=== PATIENT | male | born 1935 | race Caucasian/White ===

== ENCOUNTER → 2017-04-19 | Outpatient (CLI) | payer MEDICARE ==
[~2017-04-19] MED LIST: ASA; BIOTIN; CALCIUM; CO-Q10; DIOVAN HCT; MAGNESIUM; RANITIDINE; TRILIPIX; VIT B-12
== END | disposition home or self-care (01) ==
LOC: LAB 09:48
PROVIDERS: Physical Medicine & Rehabilitation Sports Medicine
DX: G62.9 Polyneuropathy, unspecified (principal); M51.36 Other intervertebral disc degeneration, lumbar region; Z79.899 Other long term (current) drug therapy

== ENCOUNTER → 2017-05-02 | Outpatient (CLI) | payer MEDICARE | END | disposition home or self-care (01) | LOC: MRI 08:34 | DX: M48.061 Spinal stenosis, lumbar region without neurogenic claudication (principal); K45.8 Other specified abdominal hernia without obstruction or gangrene ==

== ENCOUNTER 2019-02-02 09:39 | Inpatient (IN) | payer MEDICARE, OTHER ==
[~2019-02-02] VITALS: Ht 180.3 cm; Wt 83.7 kg
[2019-02-02 09:40] VITALS: BP 114/67
[2019-02-02 10:43] LABS: BASO % 0.3 % (0.0-1.0); EOS % 0.2 % (1.0-4.0); HEMATOCRIT 49.8 % (42.0-52.0); HEMOGLOBIN 17.1 g/dl (14.0-18.0); LYMPH # 0.5 10*3/uL (1.3-4.4); MEAN CORPUSCULAR HGB 32.3 pg (27.0-31.0); MEAN CORPUSCULAR HGB CONC 34.3 g/dl (33.0-37.0); MEAN PLATELET VOLUME 10.3 fl (9.6-12.3); MONO # 0.5 10*3/uL (0.1-1.0); MONO % 7.3 % (3.0-9.0); NEUT # 5.6 10*3/uL (2.3-7.9); NEUT % 84.7 % (47.0-73.0); PLATELET COUNT AUTOMATED 118 10*3/uL (130-400); RED CELL DISTRI WIDTH 13.4 % (0-14.5); WHITE BLOOD COUNT 6.6 10*3/uL (4.8-10.8)
[2019-02-02 10:55] LABS: INTERNATIONAL NORM RATIO 1.1 (2.0-3.5)
[2019-02-02 10:57] LABS: ALBUMIN 3.1 gm/dl (3.1-4.5); ALKALINE PHOSPHATASE 46 U/L (45-117); BUN 17 mg/dl (7-24); CHLORIDE 102 mmol/L (98-107); CREATININE 0.85 mg/dL (0.70-1.30); LIPASE 78 U/L (73-393); POTASSIUM 3.6 mmol/L (3.5-5.1); SGOT/AST 40 IU/L (3-35); SGPT/ALT 42 U/L (12-78); SODIUM 135 mmol/L (136-145); TOTAL PROTEIN 6.5 gm/dL (6.4-8.2); TROPONIN I 0.017 ng/ml (<0.045)
[2019-02-02 11:14] VITALS: BP 120/55
[2019-02-02 11:16] LABS: BILIRUBIN NEGATIVE (NEGATIVE); BLOOD 1+ (NEGATIVE); CLARITY SL CLOUDY (CLEAR); COLOR YELLOW (YELLOW); GLUCOSE NEGATIVE (NEGATIVE); KETONE NEGATIVE (NEGATIVE); LEUKO ESTERASE NEGATIVE (NEGATIVE); NITRITE NEGATIVE (NEGATIVE); PH 6.5 (5.0-9.0); SPECIFIC GRAVITY <= 1.005 (1.005-1.030)
[2019-02-02 11:25] LABS: RBC 16-20 rbc/hpf (0-2)
[2019-02-02 13:06] VITALS: BP 108/62
--- NOTE | 2019-02-02 13:28 | NUR ---
Time: 1327 A 83 year old MALE admitted to 5E under services of AMY MUNSON DO. Pt. arrived via stretcher from ER. Chief complaint: CHILSS & FEVER W/ SHIVERS. RADHIKA KUNZ
[2019-02-02 13:30] VITALS: BP 110/52
[2019-02-02] MEDS ORDERED: ASPIRIN ADULT L81 M1 PO (13:39)
[2019-02-02] MEDS ORDERED: LOSARTAN-HCTZ1 EACH PO (13:39)
[2019-02-02] MEDS ORDERED: ZANTAC 300300 MG PO (13:40)
[2019-02-02] MEDS ORDERED: K-TAB ER8 MEQ PO (13:40)
[2019-02-02] MEDS ORDERED: CRESTOR20 M1 PO (13:41)
[2019-02-02] MEDS ORDERED: Lopressor25 MG PO (13:44)
[2019-02-02] MEDS ORDERED: MULTIVITAMINS1 EAC5 PO (13:45)
[2019-02-02] MEDS ORDERED: SUNMARK MAGNES250 MG PO (13:46)
[2019-02-02] MEDS ORDERED: VITAMIN D3400 UNI1 PO (13:47)
[2019-02-02] MEDS ORDERED: COQ-10100 MG PO (13:48)
[2019-02-02] MEDS ORDERED: VITAMIN B-12500 MC3 SL (13:49)
[2019-02-02] MEDS ORDERED: FISH OIL 500 M1 EACH PO (13:50)
--- NOTE | 2019-02-02 15:00 | NUR ---
DR GODINEZ CALLED AND AWARE THAT HOME MEDICATIONS ARE UP TO DATE.
[2019-02-02 16:00] VITALS: BP 115/65
[2019-02-02 20:00] VITALS: BP 169/76
--- NOTE | 2019-02-02 20:08 | NUR ---
TYMPANIC TEMPERATURE OBTAINED ON PT DUE S/S OF FEVER. READING IS 103.5 DEGREES AFTER 3 CHECKS. PT GIVEN 650 MG TYLENOL PO, COLD COMPRESSES ADDED TO PATIENT'S FOREHEAD, BACK OF NECK, AND ARMPITS. WILL MONITOR AND RECHECK. DR LEAL NOTIFIED OF FINDINGS.
--- NOTE | 2019-02-02 21:08 | NUR ---
PT TEMPERATURE HAS DECREASED FROM 103.5 TO 101.8 AT THIS TIME. PT STATES THAT HE IS FEELING MUCH BETTER AT THIS TIME. COLD COMPRESSES RE APPLIED. IV FLUIDS INFUSING. ENCOURAGING PO FLUIDS. WILL CONTINUE TO MONITOR PT. CALL LIGHT IN REACH.
--- NOTE | 2019-02-02 23:40 | NUR ---
PT GIVEN TYLENOL FOR C/O GENERAL BODY ACHES AND TEMPERATURE OF 99.3 TYMPANIC. WILL MONITOR FOR EFFECTIVENESS. NO OTHER COMPLAINTS VOICED AT THIS TIME. PT LYING IN BED. RESPIRATIONS EASY AND UNLABORED ON ROOM AIR. IV FLUIDS INFUSING INTO RIGHT ARM IV SITE PER ORDERS. CALL LIGHT IN REACH.
[2019-02-03] VITALS: BP 108/46
--- NOTE | 2019-02-03 00:40 | NUR ---
PT STATES THAT TYLENOL IS EFFECTIVE FOR BODY ACHES. FEVER CONTINUES TO DECREASE. PT STATES THAT HE NO LONGER HAS COLD CHILLS AND THAT HE FEELS DIAPHORETIC. IV FLUIDS INFUSING. ENCOURAGING PO FLUIDS. PT STATES THAT HE DOES NOT NEED ANYTHING ELSE AT THIS TIME. CALL LIGHT IN REACH, VERBALIZES USE OF CALL LIGHT.
[2019-02-03 06:31] LABS: BASO % 0.3 % (0.0-1.0); EOS # 0.1 10*3/uL (0.0-0.4); HEMATOCRIT 46.9 % (42.0-52.0); HEMOGLOBIN 15.9 g/dl (14.0-18.0); LYMPH # 0.7 10*3/uL (1.3-4.4); LYMPH % 20.8 % (27.0-41.0); MEAN CELL VOLUME 95.1 fl (80.0-94.0); MEAN CORPUSCULAR HGB 32.3 pg (27.0-31.0); MEAN CORPUSCULAR HGB CONC 33.9 g/dl (33.0-37.0); MONO # 0.4 10*3/uL (0.1-1.0); MONO % 12.4 % (3.0-9.0); NEUT # 2.3 10*3/uL (2.3-7.9); NEUT % 63.9 % (47.0-73.0); PLATELET COUNT AUTOMATED 107 10*3/uL (130-400); RED BLOOD COUNT 4.93 10*6/uL (4.50-5.90); RED CELL DISTRI WIDTH 13.5 % (0-14.5); WHITE BLOOD COUNT 3.6 10*3/uL (4.8-10.8)
[2019-02-03 06:59] LABS: ALBUMIN 2.8 gm/dl (3.1-4.5); BUN 12 mg/dl (7-24); CHLORIDE 108 mmol/L (98-107); CHOLESTEROL 85 mg/dL (<200); CREATININE 0.69 mg/dL (0.70-1.30); PHOSPHOROUS 2.4 mg/dL (2.5-4.9); POTASSIUM 3.5 mmol/L (3.5-5.1); SGOT/AST 38 IU/L (3-35); SGPT/ALT 38 U/L (12-78); SODIUM 140 mmol/L (136-145); TOTAL PROTEIN 5.8 gm/dL (6.4-8.2); TRIGLYCERIDES 90 mg/dl (<150); VLDL CHOLESTEROL 18 mg/dL (6-40)
[2019-02-03 07:06] LABS: ALKALINE PHOSPHATASE 42 U/L (45-117); HDL CHOLESTEROL 33 mg/dl (40-60); LDL CHOLESTEROL 34 mg/dL (9-159)
[2019-02-03 07:07] LABS: VITAMIN D, 25-HYDROXY 44.5 ng/mL (30-100)
[2019-02-03 07:10] LABS: INTERNATIONAL NORM RATIO 1.1 (2.0-3.5)
[2019-02-03 08:00] VITALS: BP 146/78
--- NOTE | 2019-02-03 09:28 | NUR ---
PT UP WALKING IN HALLWAYS
[2019-02-03 12:00] VITALS: BP 129/67
[2019-02-03 16:00] VITALS: BP 119/63
[2019-02-03 20:00] VITALS: BP 114/64
--- NOTE | 2019-02-03 20:00 | NUR ---
24 HR chart check completed.
--- NOTE | 2019-02-03 21:00 | NUR ---
AMBULATING HALLWAY. NO DISTRESS NOTED. NO VOICED COMPLAINTS
--- NOTE | 2019-02-03 21:00 | NUR ---
RESTING IN BED WITH NO DISTRESS NOTED. RESPIRATIONS EASY. LUNGS DIMINISHED, CLEAR. PULSE OX 95% RA. CALL LIGHT WITHIN REACH. NO VOICED COMPLAINTS
[2019-02-04] VITALS: BP 127/78
--- NOTE | 2019-02-04 | NUR ---
SLEEPING. NO DISTRESS NOTED. RESPIRATIONS EASY. VSS. CALL LIGHT WITHIN REACH
--- NOTE | 2019-02-04 06:00 | NUR ---
SLEPT THROUGHOUT NIGHT WITH NO DISTRESS NOTED. RESPIRATIONS EASY. REMAINS AFEBRILE. CALL LIGHT WITHIN REACH. NO VOICED COMPLAINTS THIS SHIFT
[2019-02-04 07:34] LABS: BUN 9 mg/dl (7-24); CHLORIDE 105 mmol/L (98-107); CREATININE 0.74 mg/dL (0.70-1.30); POTASSIUM 3.8 mmol/L (3.5-5.1); SODIUM 139 mmol/L (136-145)
[2019-02-04 08:00] VITALS: BP 114/80
[2019-02-04 11:48] LABS: BASO % 0.4 % (0.0-1.0); EOS # 0.2 10*3/uL (0.0-0.4); EOS % 4.4 % (1.0-4.0); HEMATOCRIT 46.1 % (42.0-52.0); HEMOGLOBIN 15.9 g/dl (14.0-18.0); LYMPH # 1.2 10*3/uL (1.3-4.4); MEAN CELL VOLUME 94.7 fl (80.0-94.0); MEAN CORPUSCULAR HGB 32.6 pg (27.0-31.0); MEAN CORPUSCULAR HGB CONC 34.5 g/dl (33.0-37.0); MEAN PLATELET VOLUME 11.9 fl (9.6-12.3); MONO # 0.8 10*3/uL (0.1-1.0); MONO % 14.7 % (3.0-9.0); NEUT # 3.2 10*3/uL (2.3-7.9); NEUT % 57.9 % (47.0-73.0); PLATELET COUNT AUTOMATED 115 10*3/uL (130-400); RED BLOOD COUNT 4.87 10*6/uL (4.50-5.90); RED CELL DISTRI WIDTH 13.5 % (0-14.5); WHITE BLOOD COUNT 5.5 10*3/uL (4.8-10.8)
[2019-02-04 12:00] VITALS: BP 113/73
[2019-02-04 16:00] VITALS: BP 107/59
--- NOTE | 2019-02-04 17:01 | NUR ---
Silk Soaker in to talk to patient. Patient states lives at HOME with . There are FEW steps in the home. Physician: LEISA Pharmacy: [facility]: NONE Patient's level of ADLs: INDEPENDENT Patient has working utilities: YES DME: NONE Follow-up physician's appointment after d/c: WILL BE MADE BY HOSPITALIST NURSE DIRECTOR ON DISCHARGE Does patient want to access PORTAL?: NO Discharge plan PT LIVES AT HOME WITH HIS AND IS INDEPENDENT IN HIS CARE. DENIES NEEDS ON DISCHARGE. WILL CONTINUE TO FOLLOW. WILL HAVE A RIDE HOME . GALINDO SHAVER
--- NOTE | 2019-02-04 19:26 | NUR ---
PATIENT RESTING IN BED WATCHING TV. HEP LOCK HANGING OUT OF ARM. CATHETER INTACT, NO BLEEDING NOTED. LUNGS CLEAR/DIMINISHED. DENIES NEEDS AT THIS TIME. BED IN LOWEST POSITION, CALL LIGHT IN REACH
[2019-02-04 20:00] VITALS: BP 106/67
[2019-02-05] VITALS: BP 127/76
[2019-02-05 08:00] VITALS: BP 100/68
[2019-02-05] MEDS ORDERED: ZITHROMAX500 MG PO (09:07)
--- NOTE | 2019-02-05 10:05 | NUR ---
PT DISCHARGED HOME AT THIS TIME WITH HIS WIFE4. HEPLOCK REMOVED. DISCHARGE INSTRUCTIONS REVIEWED.
--- NOTE | 2019-02-05 10:39 | NUR ---
PHYSICAL THERAPY Physical therapy order received. Patient discharged prior to offering PT evaluation. Thank you. Jessica De Santiago,PT,DPT
--- NOTE | 2019-02-05 10:39 | NUR ---
Occupational Therapy referral received 02/04/19 and patient was discharged before OT evaluation could be offered. Sheyla Morales OTR/l
== END 2019-02-05 09:35 | disposition home or self-care (01) | DRG 178 ==
LOC: ED 09:39 → EDHOLD 12:53 → 5E 12:53
PROVIDERS: Hospitalist; Physician Assistant; ADMIT Internal Medicine
DX: J15.6 Pneumonia due to other Gram-negative bacteria (principal); E87.1 Hypo-osmolality and hyponatremia; E87.2 Acidosis; R73.9 Hyperglycemia, unspecified; R74.0 Nonspecific elevation of levels of transaminase and lactic acid dehydrogenase [LDH]; R79.82 Elevated C-reactive protein (CRP); I25.10 Atherosclerotic heart disease of native coronary artery without angina pectoris; I10 Essential (primary) hypertension; K21.9 Gastro-esophageal reflux disease without esophagitis; K44.9 Diaphragmatic hernia without obstruction or gangrene; Z91.048 Other nonmedicinal substance allergy status; Z83.3 Family history of diabetes mellitus; Z82.49 Family history of ischemic heart disease and other diseases of the circulatory system

== ENCOUNTER → 2019-05-21 | Outpatient (CLI) | payer MEDICARE, OTHER ==
[~2019-05-21] MED LIST changes: +ASPIRIN ADULT L81 M1 PO; +COQ-10100 MG PO; +CRESTOR20 M1 PO; +FISH OIL 500 M1 EACH PO; +K-TAB ER8 MEQ PO; +LOSARTAN-HCTZ1 EACH PO; +Lopressor25 MG PO; +MULTIVITAMINS1 EAC5 PO; +SUNMARK MAGNES250 MG PO; +VITAMIN B-12500 MC3 SL; +VITAMIN D3400 UNI1 PO; +ZANTAC 300300 MG PO; +ZITHROMAX500 MG PO
[2019-05-21 09:45] LABS: BASO % 0.3 % (0.0-1.0); EOS # 0.1 10*3/uL (0.0-0.4); EOS % 1.7 % (1.0-4.0); HEMATOCRIT 55.4 % (42.0-52.0); LYMPH # 1.7 10*3/uL (1.3-4.4); LYMPH % 24.1 % (27.0-41.0); MEAN CELL VOLUME 98.6 fl (80.0-94.0); MEAN CORPUSCULAR HGB CONC 32.5 g/dl (33.0-37.0); MEAN PLATELET VOLUME 10.6 fl (9.6-12.3); MONO # 0.7 10*3/uL (0.1-1.0); MONO % 9.4 % (3.0-9.0); NEUT # 4.5 10*3/uL (2.3-7.9); NEUT % 64.1 % (47.0-73.0); PLATELET COUNT AUTOMATED 169 10*3/uL (130-400); RED BLOOD COUNT 5.62 10*6/uL (4.50-5.90); RED CELL DISTRI WIDTH 12.6 % (0-14.5); WHITE BLOOD COUNT 7.1 10*3/uL (4.8-10.8)
[2019-05-21 10:18] LABS: ALKALINE PHOSPHATASE 62 U/L (45-117); BUN 17 mg/dl (7-24); CHLORIDE 107 mmol/L (98-107); CHOLESTEROL 115 mg/dL (<200); CREATININE 0.89 mg/dL (0.70-1.30); HDL CHOLESTEROL 42 mg/dl (40-60); LDL CHOLESTEROL 39 mg/dL (9-159); SGOT/AST 21 IU/L (3-35); SGPT/ALT 32 U/L (12-78); SODIUM 142 mmol/L (136-145); T3 UPTAKE 40 % (31-39); THYROXINE (T4) TOTAL 6.4 ug/dl (4.5-12.1); TOTAL PROTEIN 7.4 gm/dL (6.4-8.2); TRIGLYCERIDES 170 mg/dl (<150); VLDL CHOLESTEROL 34 mg/dL (6-40)
== END ==
LOC: LAB 09:16
PROVIDERS: Internal Medicine
DX: Z12.5 Encounter for screening for malignant neoplasm of prostate (principal); I10 Essential (primary) hypertension; I25.10 Atherosclerotic heart disease of native coronary artery without angina pectoris; E03.9 Hypothyroidism, unspecified; E78.2 Mixed hyperlipidemia; E55.9 Vitamin D deficiency, unspecified; J44.9 Chronic obstructive pulmonary disease, unspecified; D51.0 Vitamin B12 deficiency anemia due to intrinsic factor deficiency

== ENCOUNTER → 2020-06-04 | Outpatient (CLI) | payer MEDICARE, OTHER ==
[2020-06-04 07:47] LABS: BASO % 0.3 % (0.0-1.0); EOS # 0.1 10*3/uL (0.0-0.4); EOS % 1.9 % (1.0-4.0); HEMATOCRIT 52.1 % (42.0-52.0); LYMPH # 1.5 10*3/uL (1.3-4.4); LYMPH % 21.8 % (27.0-41.0); MEAN CELL VOLUME 96.3 fl (80.0-94.0); MEAN CORPUSCULAR HGB 31.4 pg (27.0-31.0); MEAN CORPUSCULAR HGB CONC 32.6 g/dl (33.0-37.0); MEAN PLATELET VOLUME 10.2 fl (9.6-12.3); MONO # 0.7 10*3/uL (0.1-1.0); MONO % 9.6 % (3.0-9.0); NEUT # 4.5 10*3/uL (2.3-7.9); PLATELET COUNT AUTOMATED 173 10*3/uL (130-400); RED BLOOD COUNT 5.41 10*6/uL (4.50-5.90); RED CELL DISTRI WIDTH 13.2 % (0-14.5); WHITE BLOOD COUNT 6.8 10*3/uL (4.8-10.8)
[2020-06-04 08:22] LABS: ALBUMIN 3.6 gm/dl (3.1-4.5); ALKALINE PHOSPHATASE 67 U/L (45-117); BUN 21 mg/dl (7-24); CHLORIDE 106 mmol/L (98-107); CHOLESTEROL 104 mg/dL (<200); CREATININE 0.87 mg/dL (0.70-1.30); HDL CHOLESTEROL 43 mg/dl (40-60); LDL CHOLESTEROL 39 mg/dL (9-159); POTASSIUM 3.8 mmol/L (3.5-5.1); SGOT/AST 27 IU/L (3-35); SGPT/ALT 44 U/L (12-78); SODIUM 141 mmol/L (136-145); T3 UPTAKE 37 % (31-39); THYROXINE (T4) TOTAL 5.2 ug/dl (4.5-12.1); TOTAL PROTEIN 6.7 gm/dL (6.4-8.2); TRIGLYCERIDES 111 mg/dl (<150); VLDL CHOLESTEROL 22 mg/dL (6-40)
[2020-06-04 09:18] LABS: VITAMIN D, 25-HYDROXY 54.3 ng/mL (30-100)
== END | disposition home or self-care (01) ==
LOC: LAB 07:32
PROVIDERS: ATTEND Internal Medicine
DX: Z12.5 Encounter for screening for malignant neoplasm of prostate (principal); I10 Essential (primary) hypertension; E78.2 Mixed hyperlipidemia; E03.9 Hypothyroidism, unspecified; I25.10 Atherosclerotic heart disease of native coronary artery without angina pectoris; E55.9 Vitamin D deficiency, unspecified; D51.0 Vitamin B12 deficiency anemia due to intrinsic factor deficiency; D51.1 Vitamin B12 deficiency anemia due to selective vitamin B12 malabsorption with proteinuria; I51.7 Cardiomegaly

== ENCOUNTER → 2021-03-16 | Outpatient (CLI) | payer MEDICARE, OTHER ==
[~2021-03-16] MED LIST changes: +BRILINTA90 M1 PO; +CLOPIDOGREL75 MG PO
[2021-03-16 08:16] LABS: HEMATOCRIT 51.9 % (42.0-52.0); MEAN CELL VOLUME 97.2 fl (80.0-94.0); RED BLOOD COUNT 5.34 10*6/uL (4.50-5.90); WHITE BLOOD COUNT 6.2 10*3/uL (4.8-10.8)
[2021-03-16 08:17] LABS: BASO % 0.3 % (0.0-1.0); EOS # 0.1 10*3/uL (0.0-0.4); EOS % 1.9 % (1.0-4.0); LYMPH # 1.2 10*3/uL (1.3-4.4); LYMPH % 19.1 % (27.0-41.0); MEAN CORPUSCULAR HGB 32.4 pg (27.0-31.0); MEAN CORPUSCULAR HGB CONC 33.3 g/dl (33.0-37.0); MEAN PLATELET VOLUME 10.5 fl (9.6-12.3); MONO # 0.5 10*3/uL (0.1-1.0); MONO % 8.5 % (3.0-9.0); NEUT # 4.4 10*3/uL (2.3-7.9); NEUT % 69.9 % (47.0-73.0); PLATELET COUNT AUTOMATED 166 10*3/uL (130-400); RED CELL DISTRI WIDTH 12.9 % (0-14.5)
[2021-03-16 08:26] LABS: INTERNATIONAL NORM RATIO 1.1 (2.0-3.5)
[2021-03-16 08:29] LABS: BUN 20 mg/dl (7-24); CHLORIDE 107 mmol/L (98-107); CREATININE 0.89 mg/dL (0.70-1.30); SODIUM 141 mmol/L (136-145)
== END | disposition home or self-care (01) ==
LOC: LAB 07:49
PROVIDERS: ATTEND Internal Medicine Cardiovascular Disease
DX: Z01.810 Encounter for preprocedural cardiovascular examination (principal); I08.0 Rheumatic disorders of both mitral and aortic valves

== ENCOUNTER 2021-03-21 10:54 | Inpatient (IN) | payer MEDICARE, OTHER ==
[~2021-03-21] VITALS: Ht 180.3 cm; Wt 74.4 kg
[~2021-03-21 10:54] MED LIST changes: -BRILINTA90 M1 PO; -CLOPIDOGREL75 MG PO
[2021-03-21 11:06] VITALS: BP 131/76
[2021-03-21 11:31] LABS: BASO % 0.2 % (0.0-1.0); EOS % 0.2 % (1.0-4.0); LYMPH # 0.8 10*3/uL (1.3-4.4); LYMPH % 7.6 % (27.0-41.0); MEAN CELL VOLUME 96.3 fl (80.0-94.0); MEAN CORPUSCULAR HGB 32.4 pg (27.0-31.0); MEAN CORPUSCULAR HGB CONC 33.7 g/dl (33.0-37.0); MEAN PLATELET VOLUME 10.5 fl (9.6-12.3); MONO # 1.1 10*3/uL (0.1-1.0); MONO % 10.2 % (3.0-9.0); NEUT # 8.9 10*3/uL (2.3-7.9); NEUT % 81.3 % (47.0-73.0); PLATELET COUNT AUTOMATED 164 10*3/uL (130-400); RED CELL DISTRI WIDTH 12.9 % (0-14.5)
[2021-03-21 11:42] VITALS: BP 124/73
[2021-03-21 11:46] LABS: ACT PARTIAL THROMBO TIME 30.1 SECONDS (20.0-32.1); INTERNATIONAL NORM RATIO 1.1 (2.0-3.5)
[2021-03-21 11:51] LABS: ALBUMIN 3.4 gm/dl (3.1-4.5); ALKALINE PHOSPHATASE 53 U/L (45-117); BUN 18 mg/dl (7-24); CHLORIDE 107 mmol/L (98-107); CREATININE 0.89 mg/dL (0.70-1.30); POTASSIUM 3.9 mmol/L (3.5-5.1); SGOT/AST 32 IU/L (3-35); SGPT/ALT 30 U/L (12-78); SODIUM 140 mmol/L (136-145); TOTAL PROTEIN 7.3 gm/dL (6.4-8.2)
[2021-03-21] MEDS ORDERED: BRILINTA90 M1 PO (13:37)
[2021-03-21 14:23] VITALS: BP 132/67
[2021-03-21 17:18] VITALS: BP 116/53
[2021-03-21 18:42] VITALS: BP 134/68
[2021-03-22] VITALS: BP 134/70
[2021-03-22 06:00] LABS: ALBUMIN 2.9 gm/dl (3.1-4.5); ALKALINE PHOSPHATASE 45 U/L (45-117); BUN 18 mg/dl (7-24); CHLORIDE 109 mmol/L (98-107); CHOLESTEROL 90 mg/dL (<200); CREATININE 0.68 mg/dL (0.70-1.30); LDL CHOLESTEROL 28 mg/dL (9-159); POTASSIUM 3.8 mmol/L (3.5-5.1); SGOT/AST 27 IU/L (3-35); SGPT/ALT 25 U/L (12-78); SODIUM 140 mmol/L (136-145); TOTAL PROTEIN 6.7 gm/dL (6.4-8.2); TRIGLYCERIDES 89 mg/dl (<150)
[2021-03-22 06:13] LABS: BASO % 0.3 % (0.0-1.0); EOS # 0.1 10*3/uL (0.0-0.4); EOS % 1.2 % (1.0-4.0); HEMATOCRIT 51.5 % (42.0-52.0); LYMPH % 10.1 % (27.0-41.0); MEAN CELL VOLUME 97.2 fl (80.0-94.0); MEAN CORPUSCULAR HGB 32.3 pg (27.0-31.0); MEAN CORPUSCULAR HGB CONC 33.2 g/dl (33.0-37.0); MEAN PLATELET VOLUME 10.9 fl (9.6-12.3); MONO # 1.1 10*3/uL (0.1-1.0); MONO % 11.1 % (3.0-9.0); NEUT # 7.8 10*3/uL (2.3-7.9); NEUT % 76.8 % (47.0-73.0); PLATELET COUNT AUTOMATED 151 10*3/uL (130-400); WHITE BLOOD COUNT 10.2 10*3/uL (4.8-10.8)
[2021-03-22 06:16] LABS: INTERNATIONAL NORM RATIO 1.1 (2.0-3.5)
[2021-03-22 07:42] VITALS: BP 125/69
[2021-03-22 11:23] VITALS: BP 119/65
[2021-03-22] MEDS ORDERED: CLOPIDOGREL75 MG PO (11:54)
== END 2021-03-22 12:46 | disposition home or self-care (01) | DRG 311 ==
LOC: ED 10:54 → EDHOLD 12:57
PROVIDERS: Emergency Medicine; Social Worker Clinical; ADMIT Internal Medicine; ATTEND Internal Medicine
DX: I24.8 Other forms of acute ischemic heart disease (principal); E44.0 Moderate protein-calorie malnutrition; J84.9 Interstitial pulmonary disease, unspecified; T45.525A Adverse effect of antithrombotic drugs, initial encounter; K21.00 Gastro-esophageal reflux disease with esophagitis, without bleeding; R73.9 Hyperglycemia, unspecified; I10 Essential (primary) hypertension; I25.10 Atherosclerotic heart disease of native coronary artery without angina pectoris; K21.9 Gastro-esophageal reflux disease without esophagitis; Z98.890 Other specified postprocedural states; Z95.5 Presence of coronary angioplasty implant and graft; Z95.1 Presence of aortocoronary bypass graft; Y92.89 Other specified places as the place of occurrence of the external cause; Z88.8 Allergy status to other drugs, medicaments and biological substances; Z88.6 Allergy status to analgesic agent; Z79.82 Long term (current) use of aspirin; Z79.899 Other long term (current) drug therapy

== ENCOUNTER → 2021-04-06 | Outpatient (CLI) | payer MEDICARE, OTHER ==
[~2021-04-06] MED LIST changes: +BRILINTA90 M1 PO; +CLOPIDOGREL75 MG PO
[2021-04-06 13:22] LABS: BASO % 0.5 % (0.0-1.0); EOS # 0.2 10*3/uL (0.0-0.4); EOS % 1.8 % (1.0-4.0); HEMATOCRIT 53.8 % (42.0-52.0); LYMPH # 1.2 10*3/uL (1.3-4.4); LYMPH % 14.9 % (27.0-41.0); MEAN CELL VOLUME 98.2 fl (80.0-94.0); MEAN CORPUSCULAR HGB 31.9 pg (27.0-31.0); MEAN CORPUSCULAR HGB CONC 32.5 g/dl (33.0-37.0); MEAN PLATELET VOLUME 10.3 fl (9.6-12.3); MONO # 0.6 10*3/uL (0.1-1.0); MONO % 7.7 % (3.0-9.0); NEUT # 6.1 10*3/uL (2.3-7.9); NEUT % 74.6 % (47.0-73.0); PLATELET COUNT AUTOMATED 201 10*3/uL (130-400); RED BLOOD COUNT 5.48 10*6/uL (4.50-5.90); RED CELL DISTRI WIDTH 12.5 % (0-14.5); WHITE BLOOD COUNT 8.1 10*3/uL (4.8-10.8)
[2021-04-06 13:38] LABS: BUN 24 mg/dl (7-24); CHLORIDE 107 mmol/L (98-107); CREATININE 0.78 mg/dL (0.70-1.30); POTASSIUM 4.1 mmol/L (3.5-5.1); SODIUM 140 mmol/L (136-145)
== END | disposition home or self-care (01) ==
LOC: LAB 13:04
PROVIDERS: ATTEND Internal Medicine Cardiovascular Disease
DX: I25.10 Atherosclerotic heart disease of native coronary artery without angina pectoris (principal); R53.83 Other fatigue; I25.83 Coronary atherosclerosis due to lipid rich plaque; I35.1 Nonrheumatic aortic (valve) insufficiency

== ENCOUNTER 2021-04-28 14:00 | Emergency (ER) | payer MEDICARE, OTHER ==
[~2021-04-28] VITALS: Ht 180.3 cm; Wt 80.7 kg
[2021-04-28] MEDS ORDERED: TELMISARTAN-HC1 EAC1 PO (14:17)
[2021-04-28 15:31] LABS: BASO % 0.2 % (0.0-1.0); EOS # 0.1 10*3/uL (0.0-0.4); EOS % 0.8 % (1.0-4.0); HEMATOCRIT 51.8 % (42.0-52.0); LYMPH # 1.1 10*3/uL (1.3-4.4); LYMPH % 13.2 % (27.0-41.0); MEAN CELL VOLUME 96.3 fl (80.0-94.0); MEAN CORPUSCULAR HGB 32.2 pg (27.0-31.0); MEAN CORPUSCULAR HGB CONC 33.4 g/dl (33.0-37.0); MEAN PLATELET VOLUME 10.4 fl (9.6-12.3); MONO # 0.6 10*3/uL (0.1-1.0); MONO % 7.1 % (3.0-9.0); NEUT # 6.7 10*3/uL (2.3-7.9); NEUT % 78.5 % (47.0-73.0); PLATELET COUNT AUTOMATED 169 10*3/uL (130-400); RED BLOOD COUNT 5.38 10*6/uL (4.50-5.90); RED CELL DISTRI WIDTH 13.2 % (0-14.5); WHITE BLOOD COUNT 8.6 10*3/uL (4.8-10.8)
[2021-04-28 15:43] LABS: BUN 25 mg/dl (7-24); CHLORIDE 106 mmol/L (98-107); CREATININE 0.86 mg/dL (0.70-1.30); POTASSIUM 3.7 mmol/L (3.5-5.1); SODIUM 142 mmol/L (136-145)
== END 2021-04-28 16:49 | disposition home or self-care (01) ==
LOC: ED 14:00
PROVIDERS: Internal Medicine
DX: S01.112A Laceration without foreign body of left eyelid and periocular area, initial encounter (principal); W18.39XA Other fall on same level, initial encounter; Y93.89 Activity, other specified; Y92.89 Other specified places as the place of occurrence of the external cause; Y99.8 Other external cause status

== ENCOUNTER → 2021-07-01 | Outpatient (CLI) | payer MEDICARE, OTHER ==
[~2021-07-01] MED LIST changes: +TELMISARTAN-HC1 EAC1 PO
[2021-07-01 07:51] LABS: BASO % 0.2 % (0.0-1.0); EOS # 0.1 10*3/uL (0.0-0.4); EOS % 2.3 % (1.0-4.0); HEMATOCRIT 53.5 % (42.0-52.0); LYMPH % 17.4 % (27.0-41.0); MEAN CELL VOLUME 97.1 fl (80.0-94.0); MEAN CORPUSCULAR HGB 32.3 pg (27.0-31.0); MEAN CORPUSCULAR HGB CONC 33.3 g/dl (33.0-37.0); MEAN PLATELET VOLUME 10.4 fl (9.6-12.3); MONO # 0.5 10*3/uL (0.1-1.0); MONO % 9.7 % (3.0-9.0); NEUT # 3.9 10*3/uL (2.3-7.9); NEUT % 69.9 % (47.0-73.0); PLATELET COUNT AUTOMATED 163 10*3/uL (130-400); RED BLOOD COUNT 5.51 10*6/uL (4.50-5.90); RED CELL DISTRI WIDTH 12.8 % (0-14.5); WHITE BLOOD COUNT 5.6 10*3/uL (4.8-10.8)
[2021-07-01 08:10] LABS: BUN 19 mg/dl (7-24); CHLORIDE 107 mmol/L (98-107); POTASSIUM 4.1 mmol/L (3.5-5.1); SODIUM 141 mmol/L (136-145)
[2021-07-01 08:17] LABS: ALKALINE PHOSPHATASE 64 U/L (45-117); CHOLESTEROL 146 mg/dL (<200); CREATININE 0.79 mg/dL (0.70-1.30); LDL CHOLESTEROL 73 mg/dL (9-159); SGOT/AST 16 IU/L (3-35); SGPT/ALT 22 U/L (12-78); T3 UPTAKE 38 % (31-39); THYROXINE (T4) TOTAL 4.5 ug/dl (4.5-12.1); TRIGLYCERIDES 185 mg/dl (<150)
[2021-07-01 12:20] LABS: VITAMIN D, 25-HYDROXY 60.9 ng/mL (30-100)
== END | disposition home or self-care (01) ==
LOC: LAB 07:08
PROVIDERS: Internal Medicine; ATTEND Physician Assistant Medical
DX: I11.0 Hypertensive heart disease with heart failure (principal); I25.10 Atherosclerotic heart disease of native coronary artery without angina pectoris; I50.32 Chronic diastolic (congestive) heart failure; I34.0 Nonrheumatic mitral (valve) insufficiency; R53.83 Other fatigue; D51.1 Vitamin B12 deficiency anemia due to selective vitamin B12 malabsorption with proteinuria; D51.0 Vitamin B12 deficiency anemia due to intrinsic factor deficiency; E55.9 Vitamin D deficiency, unspecified; E03.9 Hypothyroidism, unspecified; E78.2 Mixed hyperlipidemia; J44.9 Chronic obstructive pulmonary disease, unspecified; Z12.5 Encounter for screening for malignant neoplasm of prostate

== ENCOUNTER → 2021-08-16 | Outpatient (CLI) | payer MEDICARE, OTHER ==
[2021-08-16 14:57] LABS: BASO % 0.2 % (0.0-1.0); EOS # 0.2 10*3/uL (0.0-0.4); EOS % 1.6 % (1.0-4.0); HEMATOCRIT 50.6 % (42.0-52.0); LYMPH # 1.2 10*3/uL (1.3-4.4); LYMPH % 13.1 % (27.0-41.0); MEAN CELL VOLUME 96.6 fl (80.0-94.0); MEAN CORPUSCULAR HGB 31.7 pg (27.0-31.0); MEAN CORPUSCULAR HGB CONC 32.8 g/dl (33.0-37.0); MEAN PLATELET VOLUME 11.2 fl (9.6-12.3); MONO % 10.9 % (3.0-9.0); NEUT % 73.8 % (47.0-73.0); PLATELET COUNT AUTOMATED 110 10*3/uL (130-400); RED BLOOD COUNT 5.24 10*6/uL (4.50-5.90); RED CELL DISTRI WIDTH 12.8 % (0-14.5); WHITE BLOOD COUNT 9.5 10*3/uL (4.8-10.8)
[2021-08-16 15:14] LABS: BUN 26 mg/dl (7-24); CHLORIDE 108 mmol/L (98-107); CREATININE 0.97 mg/dL (0.70-1.30); POTASSIUM 3.9 mmol/L (3.5-5.1); SODIUM 141 mmol/L (136-145)
== END | disposition home or self-care (01) ==
LOC: LAB 14:05
PROVIDERS: ATTEND Internal Medicine Cardiovascular Disease
DX: I50.32 Chronic diastolic (congestive) heart failure (principal); I34.0 Nonrheumatic mitral (valve) insufficiency; R53.83 Other fatigue; R05.9 Cough, unspecified; Z95.818 Presence of other cardiac implants and grafts; I51.7 Cardiomegaly

== ENCOUNTER 2022-04-29 00:23 | Emergency (ER) | payer MEDICARE, OTHER ==
[~2022-04-29] VITALS: Ht 180.3 cm; Wt 72.6 kg
[~2022-04-29 00:23] MED LIST changes: -MULTIVITAMINS1 EAC5 PO; +MULTIVITAMINS1 EAC7 PO; -VITAMIN D3400 UNI1 PO; +VITAMIN D350 MC2 PO
[2022-04-29] MEDS ORDERED: TORSEMIDE20 MG PO (00:45)
[2022-05-01] MEDS ORDERED: AMOX-CLAV 875-1 EACH PO (09:12)
[2022-05-01] MEDS ORDERED: METOPROLOL SUCC25 M2 PO (09:17)
[2022-05-03] MEDS ORDERED: KLOR-CON M1010 ME1 PO (12:16)
== END 2022-04-29 02:13 | disposition home or self-care (01) ==
LOC: ED 00:23
DX: R04.0 Epistaxis (principal); Z88.8 Allergy status to other drugs, medicaments and biological substances; Z98.890 Other specified postprocedural states